=== PATIENT | male | born 1960 | race Caucasian/White ===

== ENCOUNTER 2022-06-16 20:38 | Emergency (ER) | payer OTHER | END 2022-06-17 01:35 | disposition home or self-care (01) | LOC: ER1 20:38 | DX: S01.01XA Laceration without foreign body of scalp, initial encounter (principal); R40.2410 Glasgow coma scale score 13-15, unspecified time; Z23 Encounter for immunization; W01.118A Fall on same level from slipping, tripping and stumbling with subsequent striking against other sharp object, initial encounter | CPT/HCPCS: 12002; 70450; 90471; 90715; 99283 ==